=== PATIENT | male | born 1965 | race Caucasian/White ===

== ENCOUNTER → 2021-02-13 | Outpatient (CLI) | payer OTHER ==
[~2021-02-13] MED LIST: AMBIEN5 MG PO; AXIRON30 MG/1.5 TP; CIPROFLOXACIN500 M1 PO; LORTAB 7.5-5001 EACH PO
== END ==
LOC: MRI 07:31
PROVIDERS: ATTEND Family Medicine
DX: S93.411D Sprain of calcaneofibular ligament of right ankle, subsequent encounter (principal)